=== PATIENT | female | born 1975 | race Caucasian/White ===

== ENCOUNTER 2022-04-07 10:00 | Day surgery (SDC) | payer OTHER ==
[~2022-04-07 10:00] MED LIST: Acetaminophen 500 MG Tab PO ONE; Bupivacaine 0.5% 50 ML MDV ONE; Dextrose 5%-Lactated Ringers 1,000 ML IV SCH; Lidocaine 1% 20 ML MDV INJECT ONE; Lidocaine 1% with EPINEPHrine 1:100,000 50 ML MDV INJECT SCH; Lidocaine 1% with EPINEPHrine 1:100,000 50 ML MDV ONE; Midazolam 1 MG/ML 2 ML SDV ONE; Propofol 200 MG/20 ML SDV ONE; fentaNYL 100 MCG/2 ML SDV ONE
[2022-04-07] MEDS ORDERED: ceFAZolin 1 GM Vial IM ONE (11:00)
[2022-04-07] MEDS ORDERED: ceFAZolin 2 GM in Sodium Chloride 0.9% 50 ML IV ONE (11:00)
[2022-04-07] MEDS ORDERED: Propofol 200 MG/20 ML SDV ONE ×3 (12:39→13:26)
[2022-04-07] MEDS ORDERED: Bupivacaine 0.5% 50 ML MDV INJECT ONE ×2 (12:45)
[2022-04-07] MEDS ORDERED: Lidocaine 1% with EPINEPHrine 1:100,000 50 ML MDV INJECT ONE ×2 (12:45)
== END 2022-04-07 15:08 | disposition home or self-care (01) ==
LOC: JP.SDS 10:00
PROVIDERS: ATTEND Surgery
DX: N60.81 Other benign mammary dysplasias of right breast (principal)
CPT/HCPCS: 19125; 19281; 76000; 76098; 77065; 88305; 88341; 88342; A9270; J0690; J2250; J2704; J3010; J3490; J7121

== ENCOUNTER 2023-06-08 08:49 | Day surgery (SDC) | payer BC, OTHER ==
[~2023-06-08 08:49] MED LIST changes: -Acetaminophen 500 MG Tab PO ONE; -Bupivacaine 0.5% 50 ML MDV ONE; -Dextrose 5%-Lactated Ringers 1,000 ML IV SCH; -Lidocaine 1% 20 ML MDV INJECT ONE; -Lidocaine 1% with EPINEPHrine 1:100,000 50 ML MDV INJECT SCH; -Lidocaine 1% with EPINEPHrine 1:100,000 50 ML MDV ONE; -fentaNYL 100 MCG/2 ML SDV ONE; +fentaNYL 50 MCG/ML SDV ONE
[2023-06-08] MEDS ORDERED: Dextrose 5%-Lactated Ringers 1,000 ML IV SCH (09:30)
== END 2023-06-08 12:06 | disposition home or self-care (01) ==
LOC: JP.SDS 08:49
PROVIDERS: ATTEND Surgery
DX: Z12.11 Encounter for screening for malignant neoplasm of colon (principal); K64.9 Unspecified hemorrhoids; M25.569 Pain in unspecified knee; Z88.1 Allergy status to other antibiotic agents
CPT/HCPCS: 45378; 81025; J2250; J2704; J3010; J7121